=== PATIENT | female | born 1945 | race Caucasian/White ===

== ENCOUNTER → 2024-09-10 15:23 | Outpatient (REF) | payer MEDICARE, SELFPAY ==
--- OUTSIDE RECORDS SUMMARY | 2024-09-10 17:21 | XMS_ITS | Patient Health Record ---
Author Organization [facility]ly [facility], Later [facility] Address [address] [place] [address] Care Team Providers Care Territory Sales Manager Medical Name Role Phone Ashley Caceres Primary Care Provider [phone] Alicia Hutchins Unavailable [phone] Migration, Provider Unavailable Unavailable Allergies Allergen (clinical drug ingredient) Drug/Non Drug Allergy documented on EMR Reaction Allergy Type Onset Date Status Bactrim Unknown Drug Allergy 1 Active hydrochlorothiazide hydroCHLOROthiazide Unknown Drug Al lergy 1 Active spironolactone Spironolactone headache Drug Allergy 11/24 1 Active Substance with penicillin structure and antibacterial mechanism of action (substance) Penicillins Unknown Drug Allergy 1 Active Results Component Value Reference Range Notes CBC w/ Diff Reviewed date:10/24/2023 12:00:00 AM Interpretation: Performing Lab: Notes/Report: Basophil Auto 0.6 % Eos Absolute 0.1 x10*3/mcL Eosinophil Auto 1.1 % Hct 34.5 % Hgb 12.1 g/dL Lymph Absolute 1.1 x10*3/mcL Lymph Auto 22.1 % MCH 32.3 pg MCHC 35.0 g/dL MCV 92.3 fL [place] Absolute 0.4 x10*3/mcL [place] Auto 7.6 % MPV 7.5 fL Neutro Absolute 3.3 x10*3/mcL Neutro Auto 68.6 % Platelets 201 K/mcL RBC 3.73 x10*6/mcL RDW 12.3 % WBC 4.9 K/mcL Comprehensive Metabolic Pane l Reviewed date:10/24/2023 12:00:00 AM Interpretation: Performing Lab: Notes/Report: Albumin Lvl 4.6 g/dL Albumin/Globulin Ratio 1.8 Alk Phos 43 unit/L ALT 18 unit/L ANION GAP 6.6 mmol/L AST 20 unit/L Bilirubin Total 0.4 mg/dL BUN 24 mg/dL Calcium Lvl 9.3 mg/dL Chloride Lvl 105 mmol/L CO2 28 mmol/L Creatinine Lvl 1.04 mg/dL eGFR CKD-EPI 55 mL/min/1.73 m2 Glucose Lvl 104 mg/dL Potassium Lvl 4.0 mmol/L Protein Total 7.2 g/dL Sodium Lvl 140 mmol/L Hemoglobin A1c {Glycosylated } Reviewed date:10/24/2023 12:00:00 AM Interpretation: Performing Lab: Notes/Report: eAvg Glucose 123 mg/dL Hemoglobin A1c 5.9 % Iron Level and TIBC Reviewed date:09/11/2023 12:00:00 AM Interpretation: Performing Lab: Notes/Report: Iron Lvl 58 mcg/dL Iron Sat 19 % TIBC 309 mcg/dL Transferrin 221 mg/dL Lipid Panel {Chol, Trig, HDL , LDL} Reviewed date:10/24/2023 12:00:00 AM Interpretation: Performing Lab: Notes/Report: Chol/HDL 2 Cholesterol Total 160 mg/dL Coronary Risk 43 % HDL 68 mg/dL LDL 56 mg/dL NON HDL CHOLESTEROL 92 mg/dL Triglycerides 180 mg/dL Magnesium Reviewed date:10/24/2023 12:00:00 AM Interpretation: Performing Lab: Notes/Report: Magnesium Lvl 1.9 mg/dL T4 Free Reviewed date:10/24/2023 12:00:00 AM Interpretation: Performing Lab: Notes/Report: T4 Free 0.77 ng/dL Thyroid Stimulating Hormone Reviewed date:10/24/2023 12:00:00 AM Interpretation: Performing Lab: Notes/Report: TSH 1.00 mcIU/mL Vitamin B12 Reviewed date:10/24/2023 12:00:00 AM Interpretation: Performing Lab: Notes/Report: B12 Lvl 667 pg/mL CBC w/ Diff Reviewed date:12/08/2023 12:00:00 AM Interpretation: Performing Lab: Notes/Report: Basophil Auto 1.0 % Eos Absolute 0.1 x10*3/mcL Eosinophil Auto 2.0 % Hct 33.2 % Hgb 11.1 g/dL Lymph Absolute 1.2 x10*3/mcL Lymph Auto 32.1 % MCH 31.6 pg MCHC 33.4 g/dL MCV 94.5 fL [place] Absolute 0.3 x10*3/mcL [place] Auto 9.3 % MPV 7.0 fL Neutro Absolute 2.1 x10*3/mcL Neutro Auto 55.6 % Platelets 173 K/mcL RBC 3.51 x10*6/mcL RDW 12.6 % WBC 3.7 K/mcL Comprehensive Metabolic Pane l Reviewed date:12/08/2023 12:00:00 AM Interpretation: Performing Lab: Notes/Report: Albumin Lvl 4.4 g/dL Albumin/Globulin Ratio 1.7 Alk Phos 39 unit/L ALT 21 unit/L ANION GAP 6.1 mmol/L AST 24 unit/L Bilirubin Total 0.5 mg/dL BUN 29 mg/dL Calcium Lvl 9.8 mg/dL Chloride Lvl 104 mmol/L CO2 30 mmol/L Creatinine Lvl 1.06 mg/dL eGFR CKD-EPI 54 mL/min/1.73 m2 Glucose Lvl 94 mg/dL Potassium Lvl 4.1 mmol/L Protein Total 7.0 g/dL Sodium Lvl 140 mmol/L Ferritin Reviewed date:12/08/2023 12:00:00 AM Interpretation: Performing Lab: Notes/Report: Ferritin Lvl 208.8 ng/mL Hemoglobin A1c {Glycosylated } Reviewed date:12/08/2023 12:00:00 AM Interpretation: Performing Lab: Notes/Report: eAvg Glucose 117 mg/dL Hemoglobin A1c 5.7 % Iron Level and TIBC Reviewed date:12/08/2023 12:00:00 AM Interpretation: Performing Lab: Notes/Report: Iron Lvl 92 mcg/dL Iron Sat 33 % TIBC 283 mcg/dL Transferrin 202 mg/dL Lipid Panel {Chol, Trig, HDL , LDL} Reviewed date:12/08/2023 12:00:00 AM Interpretation: Performing Lab: Notes/Report: Chol/HDL 3 Cholesterol Total 170 mg/dL Coronary Risk 37 % HDL 64 mg/dL LDL 85 mg/dL NON HDL CHOLESTEROL 107 mg/dL Triglycerides 107 mg/dL Magnesium Reviewed date:12/08/2023 12:00:00 AM Interpretation: Performing Lab: Notes/Report: Magnesium Lvl 2.1 mg/dL T4 Free Reviewed date:12/08/2023 12:00:00 AM Interpretation: Performing Lab: Notes/Report: T4 Free 0.86 ng/dL Thyroid Stimulating Hormone Reviewed date:12/08/2023 12:00:00 AM Interpretation: Performing Lab: Notes/Report: TSH 1.61 mcIU/mL Vitamin B12 Reviewed date:12/08/2023 12:00:00 AM Interpretation: Performing Lab: Notes/Report: Vitamin B12 Lvl 457 pg/mL Vitamin D 25 Hydroxy Reviewed date:12/08/2023 12:00:00 AM Interpretation: Performing Lab: Notes/Report: Vitamin D 25 OH 39 ng/mL CBC w/ Diff Reviewed date:01/18/2024 12:00:00 AM Interpretation: Performing Lab: Notes/Report: Basophil Auto 0.5 % Eos Absolute 0.1 x10*3/mcL Eosinophil Auto 0.9 % Hct 34.1 % Hgb 11.7 g/dL Lymph Absolute 1.5 x10*3/mcL Lymph Auto 24.8 % MCH 32.5 pg MCHC 34.4 g/dL MCV 94.4 fL [place] Absolute 0.5 x10*3/mcL [place] Auto 8.2 % MPV 7.7 fL Neutro Absolute 4.0 x10*3/mcL Neutro Auto 65.6 % Platelets 246 K/mcL RBC 3.61 x10*6/mcL RDW 13.5 % WBC 6.0 K/mcL Lactate Dehydrogenase Reviewed date:01/18/2024 12:00:00 AM Interpretation: Performing Lab: Notes/Report: LDH 203 unit/L Microalbumin Quantitative wi th Creatinine Reviewed date:01/18/2024 12:00:00 AM Interpretation: Performing Lab: Notes/Report: Creatinine Ur 186 mg/dL Mcralb/Creat Ratio 32.7 mcg/mg Microalbumin Ur 61.0 mg/L Occult Blood Stool Reviewed date:01/25/2024 12:00:00 AM Interpretation: Performing Lab: Notes/Report: Occult Bld Stl Negative Reason For Referral Reason Squamous cell carcin perri Diagnosis 1 SCC (squamous cell c arcinoma) (C44.92) Referral Organization [facility] Referring Provider First Name Ashley Referring Provider Last Name Crooks Referring Provider [facility] Referred Provider Specialty Dermatology General Notes Stella Knutson 0 08/19/2024 10:56:37 AM NANOFABRICATION SPECIALIST >Dr. Dias[facility] skin clinic is closed and no longer accepting pts, Zenia Stella 08/19/2024 11:00:56 AM NANOFABRICATION SPECIALIST >Dr. Kathleen looks to specialize more in ENT related plastic surgery procedures such as rhinoplasty, Stella Knutson 08/19/2024 11:04:34 AM NANOFABRICATION SPECIALIST >Referral sent to Dr. Ramos at [facility] in [place] [phone], [place] 08/19/2024 11:35:45 AM NANOFABRICATION SPECIALIST >I gave pt the name and phone number of the derm we referred her to at today's OV appt Clinical Notes Osmani Audrey 08/16 01:05:37 PM NANOFABRICATION SPECIALIST >Dr braden or Dr. Kathleen Referral Priority Routine Medications Medication SIG (Take, Route, Frequency, Duration) Notes Start Date End Date Status Anti-Diarrheal oral; Duration: 0 *Pick strength -form from [employer] Apparelan for eRX* 12/04/2020 Active Benadryl Allergy 25 MG 1/2 Oral every night at bedtime; Duration: 0 12/04/2020 Active Glucosamine-Chondr (MSM-hyal) oral; Duration: 0 *Reorder from [employer] Apparelan for eRx and Interaction Alerts* 12/04/2020 Active Multivitamin oral; Duration: 0 *Pick strength -form from [employer] for eRX* 12/04/2020 Active amLODIPine Besylate 5 MG 1 tablet Orally twice a day; Duration: 90 days INcreased directions. Active Calcium 600 oral; Duration: 0 *Pick strength -form from [employer] for eRX* 12/04/2020 Active Tumersaid oral; Duration: 0 *Pick strength -form from [employer] for eRX* 12/15/2023 Active Metoprolol Succinate ER 50 MG 1 tablet Orally Once a day; Duration: 90 days Active Vitamin D3 125 MCG (5000 UT) 1 Oral every day; Duration: 0 12/04/2020 Active Atorvastatin Calcium 20 MG 1 tablet Orally Once a day; Duration: 90 days Active Lisinopril 40 MG 1 tablet Orally Once a day; Duration: 90 days Active Tylenol 8 Hour Arthritis Pain 650 MG 2 tablets Oral 3 times a day; Duration: 0 days As needed 12/04/2020 Active Co Q-10 200 mg 1 Oral every day; Duration: 0 12/04/2020 Active Myrbetriq 25 MG 1 tablet alternating with 50 mg as needed Orally Once a day; Duration: 90 days Active Aspirin Adult Low Strength 81 MG 1 Oral every day; Duration: 0 12/04/2020 Active Immunizations Vaccine Route Administration Date Status Comme nts Zoster Unknown 08/20/2019 Administered Source VFC Code: : Tdap Unknown 12/12/2019 Administered ,sourcename : Historical information -from public agency Source VFC Code: : Td (adult), adsorbed Unknown 05/30/2005 Administered ,sourcename : Historical information -from public agency Source VFC Code: : RSV-MAb (Respiratory syncytial virus immune globulin) Unknown 05/02/2023 Administered ,sourcename : Pharmacy Source VFC Code: : Pneumococcal polysaccharide PPV23 Unknown 04/07/2006 Administered ,sourcename : Historical information -from public agency Source VFC Code: : Pneumococcal polysaccharide PPV23 Unknown 05/26/2014 Administered ,sourcename : Historical information -from public agency Source VFC Code: : Pneumococcal conjugate PCV 13 Unknown 10/12/2017 Administered ,sourcename : Historical information -from public agency Source VFC Code: : Pfizer-Biontech Covid-19 Vaccine 1st dose Unknown 08/01/2020 Administered ,sourcename : Historical information -from public agency Source VFC Code: : Pfizer-Biontech Covid-19 Vaccine 1st dose Unknown 08/29/2020 Administered ,sourcename : Historical information -from public agency Source VFC Code: : Pfizer-Biontech Covid-19 Vaccine 1st dose Unknown 05/04/2021 Administered ,sourcename : Historical information -from public agency Source VFC Code: : Pfizer-Biontech Covid-19 Vaccine 1st dose Unknown 10/28/2021 Administered ,sourcename : Historical information -from public agency Source VFC Code: : Pfizer-Biontech Covid-19 Vaccine 1st dose Unknown 05/02/2023 Administered ,sourcename : Pharmacy Source VFC Code: : Moderna Covid-19 Vaccine 1st dose IM Intramuscular 04/27/2022 Administered Source VFC Code: : Influenza, seasonal, injectable, preservative free, 3 yrs and above Unknown 04/23/2021 Administered ,sourcename : Historical information -from public agency Source VFC Code: : Influenza, high dose seasonal Unknown 04/13/2023 Administered ,sourcename : Pharmacy Source VFC Code: : Hep B, adult (2 dose schedule) Unknown 03/24/1993 Administered ,sourcename : Historical information -from public agency Source VFC Code: : Hep B, adult (2 dose schedule) Unknown 04/21/1993 Administered ,sourcename : Historical information -from public agency Source VFC Code: : Hep B, adult (2 dose schedule) Unknown 09/29/1993 Administered ,sourcename : Historical information -from public agency Source VFC Code: : Problems Problem Type SNOMED Code ICD Code Onset Dates Problem Status W/U Status Risk Notes Problem Dermatophytosis of nail (987874991) Dermatophytosis of nail (110.1) Problem resolved confirmed Problem Dermatophytosis (53828771) Dermatophytosis of unspecified site (110.9) Problem resolved confirmed Problem Vitamin D deficiency (58268599) Unspecified vitamin D deficiency (268.9) Problem resolved confirmed Problem Benign essential hypertension (6713598) Essential hypertension, benign (401.1) Problem resolved confirmed Problem Atrophy of skeletal muscle of pelvis (705203297) Pelvic muscle wasting (618.83) Problem resolved confirmed Problem Rectal prolapse (80648999) Rectal prolapse (569.1) Problem resolved confirmed Problem Urinary tract infectious disease (disorder) (33502247) Urinary tract infection, site not specified (599.0) Problem resolved confirmed Problem 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) Problem resolved confirmed Problem Tinea unguium (658146609) Tinea unguium (B35.1) Problem resolved confirmed Problem Tinea corporis (76067470) Tinea corporis (B35.4) Problem resolved confirmed Problem Squamous cell carcinoma of upper extremity (852132591) Squamous cell carcinoma of skin of right upper limb, 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) 023 Active confirmed Problem Anemia (552864181) Anemia, unspecified (D64.9) Active confirmed Problem Leukopenia (04569150) Decreased white blood cell count, unspecified (D72.819) Active confirmed Problem Vitamin B deficiency (27526884) Deficiency of other specified B group vitamins (E53.8) Active confirmed Problem Vitamin D deficiency (47366378) Vitamin D deficiency, unspecified (E55.9) Active confirmed Problem Mixed hyperlipidemia (352025895) Mixed hyperlipidemia (E78.2) Active confirmed Problem Hyperlipidemia (63170890) Hyperlipidemia, unspecified (E78.5) Active confirmed Problem Hypomagnesemia (418905874) Hypomagnesemia (E83.42) Active confirmed Problem Essential hypertension (08234785) Essential (primary) hypertension (I10) Active confirmed Problem Diverticula of intestine (28067280) Diverticulosis of intestine, part unspecified, without perforation or abscess without bleeding (K57.90) Active confirmed Problem Rectal prolapse (61760820) Rectal prolapse (K62.3) Active confirmed Problem Hemorrhoids (84743190) Other hemorrhoids (K64.8) Active confirmed Problem Pain of left hip joint (finding) (548123313538165) Pain in left hip (M25.552) Active confirmed Problem Scoliosis (060830499) Scoliosis, unspecified (M41.9) Active confirmed Problem Sciatica (08296307) Sciatica, unspecified side (M54.30) Active confirmed Problem Disorder of bone (58630330) Other specified disorders of bone density and structure, unspecified site (M85.80) Active confirmed Problem Overactive bladder (008794427) Overactive bladder (N32.81) Active confirmed Problem Urinary tract infectious disease (disorder) (20104043) Urinary tract infection, site not specified (N39.0) Problem resolved confirmed Problem Atrophy of skeletal muscle of pelvis (560732856) Pelvic muscle wasting (N81.84) 018 Problem resolved confirmed Problem Spontaneous ecchymosis (452961644) Spontaneous ecchymoses (R23.3) 023 Active confirmed Problem Age-related cognitive decline (107979020) Age-related cognitive decline (R41.81) 018 Problem resolved confirmed Problem Problem, abnormal examination (67207845) Encounter for general adult medical examination with abnormal findings (Z00.01) 018 Problem resolved confirmed Problem Postmenopausal state (37274493) Asymptomatic menopausal state (Z78.0) 023 Active confirmed Problem Urogenital implant (222592426) Presence of urogenital implants (Z96.0) 023 Problem resolved confirmed Problem Spinal stenosis of lumbar region (83407970) Spinal stenosis, lumbar region without neurogenic claudication (M48.061) 024 Active confirmed Problem Prediabetes (964812317) Prediabetes (R73.03) 024 Active confirmed Problem Chronic kidney disease stage 3A (disorder) (677115790) Chronic kidney disease, stage 3a (N18.31) 024 Active confirmed Problem 852510006 SCC (squamous ce ll carcinoma) (C44.92) Active confirmed Vital Signs Heart Rate 80 /min 08/19/2024 Temperature 97.4 degrees Fahrenheit 08/19/2024 Respiratory Rate 20 /min 08/19/2024 Height-cm 156.21 cm 08/19/2024 Oximetry 99 % 08/19/2024 Blood pressure diastolic 72 mm Hg 08/19/2024 Weight-kg 60.87 kg 08/19/2024 Height 61.50 in 08/19/2024 Blood pressure systolic 146 mm Hg 08/19/2024 Weight 134.2 lbs 08/19/2024 BMI 24.94 kg/m2 08/19/2024 Encounters Encounter Location Date Provider Diagnosis [address] [address] 09/11/2023 Alicia Hutchins Encounter for genera l adult medical examination without abnormal findings Z00.00 ; Vitamin D deficiency, unspecified E55.9 ; Essential (primary) hypertension I10 ; Pain in left hip M25.552 ; Other specified disorders of bone density and structure, unspecified site M85.80 ; Sciatica, unspecified side M54.30 ; Encounter for other screening for malignant neoplasm of breast Z12.39 ; Overactive bladder N32.81 ; Mixed hyperlipidemia E78.2 ; Hyperglycemia, unspecified R73.9 ; Unsteadiness on feet R26.81 and Anemia, unspecified D64.9 [place] [address] 09/19/2023 Provider Migration Spondylosis without myelopathy or radiculopathy, lumbar region M47.816 ; Sciatica, unspecified side M54.30 ; Scoliosis, unspecified M41.9 and Low back pain, unspecified M54.50 [place] [address] 10/19/2023 [facility] Spondylosis without myelopathy or radiculopathy, lumbar region M47.816 ; Hypomagnesemia E83.42 ; Unsteadiness on feet R26.81 ; Low back pain, unspecified M54.50 and Sciatica, unspecified side M54.30 [place] [phone] 12/07/2023 Provider Migration Anemia, unspecified D64.9 ; Hyperlipidemia, unspecified E78.5 ; Hyperglycemia, unspecified R73.9 ; Hypomagnesemia E83.42 ; Essential (primary) hypertension I10 and Vitamin D deficiency, unspecified E55.9 [place] [phone] 12/15/2023 [facility] Vitamin D deficiency , unspecified E55.9 ; Mixed hyperlipidemia E78.2 ; Overactive bladder N32.81 ; Decreased white blood cell count, unspecified D72.819 ; Chronic kidney disease, stage 3a N18.31 ; Spinal stenosis, lumbar region without neurogenic claudication M48.061 ; Other seborrheic keratosis L82.1 ; Neoplasm of uncertain behavior of skin D48.5 ; Unsteadiness on feet R26.81 ; Essential (primary) hypertension I10 ; Prediabetes R73.03 ; Deficiency of other specified B group vitamins E53.8 and Anemia, unspecified D64.[address] [address] 07/03/2024 [facility] Neoplasm of uncertai n behavior of skin D48.5 ; Anemia, unspecified D64.9 ; Decreased white blood cell count, unspecified D72.819 ; Vitamin D deficiency, unspecified E55.9 ; Hyperlipidemia, unspecified E78.5 ; Essential (primary) hypertension I10 ; Sebaceous cyst L72.3 ; Other seborrheic keratosis L82.1 and Actinic keratosis L57.[address] [address] 07/19/2024 [facility] Inflamed seborrheic keratosis L82.0 and Sebaceous cyst L72.[address] [address] 08/02/2024 [facility] Sebaceous cyst L72.3 and Neoplasm of uncertain behavior of skin D48.[address] [address] 08/12/2024 [facility] Visit for suture removal Z48.[address] [address] 08/19/2024 Alicia Hutchins Routine gynecologica l examination Z01.419 ; Screening breast examination Z12.39 and Pessary maintenance Z46.[address] [address] 05/25/2024 Provider Migration [address] [phone] 05/26/2024 Provider Migration [address] [address] 06/27/2024 [facility] Vitamin D deficiency , unspecified E55.9 ; Deficiency of other specified B group vitamins E53.8 ; Mixed hyperlipidemia E78.2 ; Hypomagnesemia E83.42 ; Essential (primary) hypertension I10 and Hyperglycemia, unspecified R73.[address] [address] 07/09/[address] [address] 07/25/2024 Alicia Hutchins Assessments Encounter Date Diagnosis (ICD Code) Assessment Notes Treat ment Notes Treatment Clinical Notes 06/27/2024 Vitamin D deficiency, unspecified (ICD-10 - E55.9) 07/03/2024 Neoplasm of uncertain behavior of skin (ICD-10 - D48.5) 07/03/2024 Anemia, unspecified (ICD-10 - D64.9) 07/19/2024 Sebaceous cyst (ICD-10 - L72.3) 07/19/2024 Inflamed seborrheic keratosis (ICD-10 - L82.0) Post procedure without path Patient was informed of the following: Apply Vaseline or Aquaphor until the wound is healed or until sutures are removed in approximately 10 days. Wash area gently with soap and water. Monitor for signs and symptoms of infection and call the office with any questions or concerns. 08/02/2024 Neoplasm of uncertain behavior of skin (ICD-10 - D48.5) Post procedure with path Patient was informed of the following: Apply Vaseline or Aquaphor until the wound is healed or until sutures are removed in approximately 10 days. Wash area gently with soap and water. Monitor for signs and symptoms of infection and call the office with any questions or concerns. Patient will be contacted with pathology results when available. 08/02/2024 Sebaceous cyst (ICD-10 - L72.3) Post procedure without path Patient was informed of the following: Apply Vaseline or Aquaphor until the wound is healed or until sutures are removed in approximately 10 days. Wash area gently with soap and water. Monitor for signs and symptoms of infection and call the office with any questions or concerns. 08/12/2024 Visit for suture removal (ICD-10 - Z48.02) 2 sutures removed from left upper arm apply vasoline to any healing areas will call with path report on right lower leg when available. 08/19/2024 Screening breast examination (ICD-10 - Z12.39) -Declines any further mammograms. CBE exam done today and normal 08/19/2024 Routine gynecological examination (ICD-10 - Z01.419) -Has aged out pap, but pelvic exam was performed along with pessary care. Mild cervical erosion noted, most likely from pessary. She has mild uterine prolapse. 09/11/2023 Anemia, unspecified (ICD-10 - D64.9) 09/11/2023 Vitamin D deficiency, unspecified (ICD-10 - E55.9) 09/11/2023 Mixed hyperlipidemia (ICD-10 - E78.2) 09/11/2023 Essential (primary) hypertension (ICD-10 - I10) 09/11/2023 Pain in left hip (ICD-10 - M25.552) 09/11/2023 Sciatica, unspecified side (ICD-10 - M54.30) 09/11/2023 Other specified disorders of bone density and structure, unspecified site (ICD-10 - M85.80) 09/11/2023 Overactive bladder (ICD-10 - N32.81) 09/11/2023 Unsteadiness on feet (ICD-10 - R26.81) 09/11/2023 Hyperglycemia, unspecified (ICD-10 - R73.9) 09/11/2023 Encounter for general adult medical examination without abnormal findings (ICD-10 - Z00.00) 09/11/2023 Encounter for other screening for malignant neoplasm of breast (ICD-10 - Z12.39) 09/19/2023 Scoliosis, unspecified (ICD-10 - M41.9) 09/19/2023 Spondylosis without myelopathy or radiculopathy, lumbar region (ICD-10 - M47.816) 09/19/2023 Sciatica, unspecified side (ICD-10 - M54.30) 09/19/2023 Low back pain, unspecified (ICD-10 - M54.50) 10/19/2023 Hypomagnesemia (ICD-10 - E83.42) 10/19/2023 Spondylosis without myelopathy or radiculopathy, lumbar region (ICD-10 - M47.816) 10/19/2023 Sciatica, unspecified side (ICD-10 - M54.30) 10/19/2023 Unsteadiness on feet (ICD-10 - R26.81) 10/19/2023 Low back pain, unspecified (ICD-10 - M54.50) 12/07/2023 Anemia, unspecified (ICD-10 - D64.9) 12/07/2023 Vitamin D deficiency, unspecified (ICD-10 - E55.9) 12/07/2023 Hyperlipidemia, unspecified (ICD-10 - E78.5) 12/07/2023 Hypomagnesemia (ICD-10 - E83.42) 12/07/2023 Essential (primary) hypertension (ICD-10 - I10) 12/07/2023 Hyperglycemia, unspecified (ICD-10 - R73.9) 12/15/2023 Neoplasm of uncertain behavior of skin (ICD-10 - D48.5) 12/15/2023 Anemia, unspecified (ICD-10 - D64.9) 12/15/2023 Decreased white blood cell count, unspecified (ICD-10 - D72.819) 12/15/2023 Deficiency of other specified B group vitamins (ICD-10 - E53.8) 12/15/2023 Vitamin D deficiency, unspecified (ICD-10 - E55.9) 12/15/2023 Mixed hyperlipidemia (ICD-10 - E78.2) 12/15/2023 Essential (primary) hypertension (ICD-10 - I10) 12/15/2023 Other seborrheic keratosis (ICD-10 - L82.1) 12/15/2023 Overactive bladder (ICD-10 - N32.81) 12/15/2023 Unsteadiness on feet (ICD-10 - R26.81) 12/15/2023 Spinal stenosis, lumbar region without neurogenic claudication (ICD-10 - M48.061) 12/15/2023 Prediabetes (ICD-10 - R73.03) 12/15/2023 Chronic kidney disease, stage 3a (ICD-10 - N18.31) 06/27/2024 Deficiency of other specified B group vitamins (ICD-10 - E53.8) 08/19/2024 Pessary maintenance (ICD-10 - Z46.89) -Due to arthritis in hand she has difficulty removing pessary, but still feels like she can manage at home still. Small fissure noted at the inferior vaginal opening. Cleaned and reinstreted withou any difficulties. 07/03/2024 Decreased white blood cell count, unspecified (ICD-10 - D72.819) 06/27/2024 Mixed hyperlipidemia (ICD-10 - E78.2) 06/27/2024 Hypomagnesemia (ICD-10 - E83.42) 07/03/2024 Vitamin D deficiency, unspecified (ICD-10 - E55.9) 07/03/2024 Hyperlipidemia, unspecified (ICD-10 - E78.5) 06/27/2024 Essential (primary) hypertension (ICD-10 - I10) 06/27/2024 Hyperglycemia, unspecified (ICD-10 - R73.9) 07/03/2024 Essential (primary) hypertension (ICD-10 - I10) 07/03/2024 Sebaceous cyst (ICD-10 - L72.3) 07/03/2024 Other seborrheic keratosis (ICD-10 - L82.1) 07/03/2024 Actinic keratosis (ICD-10 - L57.0) 07/03/2024 Other Assessment & Plan Actinic Keratosis (Left Inner Arm): - Identified as a precancerous lesion. - Needs to be frozen at some point. Seborrheic Keratosis (Right Neck): - Not a skin cancer, identified as seborrheic keratosis. - Can be shaved off and cauterized if it bothers the patient. Sebaceous Cyst (Various Locations): left arm, back - Identified as sebaceous cysts, not cancerous and will not become cancerous. - Can be opened and removed if bothersome. Squamous Cell Skin Cancer History: - History of squamous cell skin cancer; current red spot on the skin could be transformed. - Biopsy recommended for the atypical red spot right lower leg HTN - Current medication is amlodipine 5 mg once daily. - Increase amlodipine to 5 mg twice daily. Prescribe a 90-day supply. - Risks and side effects: Increased chance of leg swelling or side effects if taken together. Memory Concerns: - Concerns about memory worsening. - Schedule a full memory test during the August visit. -Discussed OTC supplements such as prevagen. Mammogram and Colonoscopy: - No active GI bleeding; mammograms are optional after age 75. - No routine mammograms unless symptoms arise. No colonoscopy unless active GI bleeding. Prostate Cancer Management (Spouse): - Spouse has prostate cancer; PSA levels not zero. - Spouse to consult with urologist for further management. Skin Lesion Biopsy and Removal: - Multiple skin lesions identified. - Schedule appointments for right leg biopsy, left arm cryotherapy, and right neck shave biopsy. Prescription - amlodipine 5 mg, twice a day, 90-day supply. Increased chance of leg swelling or side effects if taken together. Appointments - Biopsy appointment on right leg and cryotherapy on left arm, same day. - Separate appointment for shave biopsy on right neck. - August appointment for full memory test. 08/19/2024 Other Squamous cell carcinoma (pending plastic surgery consult)- Squamous cell carcinoma diagnosis confirmed. Pending plastic surgery consult for further management. She was given number of plastic surgeon to call Plan Of Treatment Pending Test Test Name Order Date Thyroxine (T4) 06/27/2024 Hemoglobin A1c 06/27/2024 Vitamin B12 06/27/2024 TSH 06/27/2024 CBC With Differential/Platelet Vitamin D, 25-Hydroxy 06/27/2024 Comp. Metabolic Panel (14) 06/27/2024 Next Appt Details Provider Name:Davidson lipscomb, 09/17/2024 02:00:00 PM, [employer], [place], [address], [phone] Provider Name:Ashley Caceres , 01/01/2025 01:45:00 PM, [employer], [place], [address], [phone] Insurance Providers Payer Name Payer Address Payer Phone Subscriber Number Group Number Insured Name Patient Relationship to Insured Coverage Start Date Coverage End Date [employer] Medicare Advantage [address]po [address] [place] [address] [id number] Felipa Wong Self - patient is the insured 3 Medical (General) History Medical History History ICD Code Spinal stenosis, lumbar region without n eurogenic claudication M48.061 Prediabetes R73.03 Chronic kidney disease, stage 3a N18.31 Anemia, unspecified D64.9 Mixed hyperlipidemia E78.2 Scoliosis, unspecified M41.9 Vitamin D deficiency, unspecified E55.9 Asymptomatic menopausal state Z78.0 Essential (primary) hypertension I10 Surgical History Surgery Date(Month/Year) Colonoscopy _ Arthroplasty, knee, condyle and plateau; medial AND lateral compartments with or without patella res _ laryngoscopy ,notes : negative 8 Cystoscopy ,notes : microhematuria 04/14 10
--- OUTSIDE RECORDS SUMMARY | 2024-09-10 17:21 | XMS_ITS | Clinical Summary ---
Author Organization [facility] Address [facility] [place] [address] Care Team Providers Care Electric Welder Helper Name Role Phone Joellen Del Castillo MD, Otis Unavailable [phone] [facility] [phone] Dior Molina MD Primary Care Provider Allergies Active Allergy Reactions Criticality Noted Date Comments Latex Rash Low 07/22/2022 Penicillins Rash Low 06/14/2017 Spironolactone Headache 07/13/2017 Medications atorvastatin 10 MG tablet 2 tablets (20 mg total) nightly at bedtime. 06/13/2017 Active aspirin EC (ECOTRIN) 81 MG tablet Take 1 tablet (81 mg total) by mouth daily. Active multivitamin tablet Take 1 tablet by mouth daily. Active Calcium Carbonate (CALCIUM 600 OR) Take by mouth daily. Active Cholecalciferol (VITAMIN D3) 2000 UNITS Tab Take by mouth daily. Active magnesium oxide 250 MG tablet Take 1 tablet (250 mg total) by mouth daily. Active COENZYME Q-10 OR Take by mouth daily. Active amLODIPine (NORVASC) 5 MG tablet Take 1 tablet (5 mg total) by mouth daily. 06/17/2022 Active lisinopril (PRINIVIL) 40 MG tablet Take 1 tablet (40 mg total) by mouth daily. 06/06/2022 Active MYRBETRIQ 50 MG 24 hr tablet Take 1 tablet (50 mg total) by mouth daily. 06/06/2022 Active metoprolol succinate ER (TOPROL-XL) 50 MG 24 hr tablet Take 1 tablet (50 mg total) by mouth daily. 06/17/2022 Active Active Problems Problem Noted Date Diagnosed Date Encounter for screening for malignant neoplasm o f colon 07/28/2022 Overview (08/01/2022): Added automatically from request for surgery [id number] HTN (hypertension) Dyslipidemia Pulmonary HTN (CMS/HCC HHS/HCC) Resolved Problems Problem Noted Date Diagnosed Date Resolved Date Encounter for screening colonoscopy 07/27/2022 08/01/2022 Family History Medical History Relation Comments Stroke Mother Stroke Paternal Grandfather Breast Cancer Neg Hx Relation Status Comments Father Mother Paternal Grandfather Social History Tobacco Use Types Packs/Day Years Used Date Smoking Tobacco: Never Smokeless Tobacco: Never Tobacco Cessation:Counseling Given: Not Answered Alcohol Use Standard Drinks/Week Comments No 0 (1 standard drink = 0.6 oz pur e alcohol) PHQ-2 Answer Date Recorded Patient Health Questionnaire-2 Score 0 07/22/2022 Comments No Sex and Gender Information Value Date Recorded Sex Assigned at Not on file Legal Sex Female 2:19 PM CDT Gender Identity Not on file Sexual Orientation Not on file Occupation Industry Job Start Date Job End Date Retired Not on file Not on file Not on file Last Filed Vital Signs Vital Sign Reading Time Taken Comments Blood Pressure 171/47 04/26/2023 9:17 AM CDT Pulse 72 04/26/2023 9:17 AM CDT Temperature 36.1 C (97 F) 04/26/2023 7:49 AM CDT Respiratory Rate 16 04/26/2023 9:17 AM CDT Oxygen Saturation 100% 04/26/2023 9:17 AM CDT Inhaled Oxygen Concentration - - Weight 63.5 kg (140 lb) 04/20/2023 11:32 AM CDT Height 160 cm (5' 3 ) 04/20/2023 11:32 AM CDT Body Mass Index 24.8 04/20/2023 11:32 AM CDT Plan of Treatment Health Maintenance Due Date Last Done Comments Hepatitis C 1963 DTaP, Tdap and Td Vaccines (1 - Tdap) 05/31/2005 05/30/2005 Zoster Vaccines (2 of 3) 04/02/2007 02/05/2007 Annual Medicare Wellness Visit 2010 Pneumococcal Vaccine: 65+ Years (2 of 2 - PCV) 05/26/2015 05/26/2014, 04/07/2006 RSV Immunization or 60+ Years (1 - 1-dose 75+ series) 2020 COVID-19 Vaccine ( season) 2024 Influenza Adult (#1) 2024 03/20/2018, 03/16/2017, 04/28/2016, Additional history exists Colorectal Cancer Screening Colonoscopy (10 Years) Discontinued 08/05/2022, 08/05/2022, 07/24/2017 Dexa Scan (General) Completed 09/09/2022 Meningococcal B Vaccine Aged Out No l onger eligible based on patient's age to complete this topic Meningococcal Vaccine Aged Out No driss pedrito eligible based on patient's age to complete this topic RSV Immunizations Under 20 Months Aged Out No longer eligible based on patient's age to complete this topic Medical Devices Implanted Type Area Tree Thinner Device Identifier Shelf Expiration Date Model / Serial / Lot Maximo Lens Implanted:Qty: 1 on 03/29/2023 by Daylin Kay MD at [facility] [id number] 09/14/2025 / / NONE Clareon Ponce Optix Implanted:Qty: 1 on 04/26/2023 by Daylin Kay MD at [facility] [id number] 10/05/2025 / [id number] / Procedures Procedure Name Priority Date/Time Associated Diagnosis Comments BONE DENSITY/DEXA Routine 09/09/2022 9:1 3 AM CDT Encounter for general adult medical examination without abnormal findings Vaginal pessary present Unsteady gait Vitamin D deficiency Postmenopausal Screening for breast cancer Hypertension Rectal prolapse Mixed hyperlipidemia Overactive bladder COLONOSCOPY Routine 08/05/2022 9:14 AM PARTITION ASSEMBLER from Last 3 Months or Most Recently Relevant to Health Maintenance Results * BONE DENSITY/DEXA (09/09/2022 9:13 AM CDT) Anatomical Region Laterality Modality Bone Other, Computed Tomography 09/09/2022 1:08 PM CDT Narrative 09/09/2022 1:13 PM CDT IMAGING STUDIES: BONE DENSITY/DEXA DATE: 09/09/2022 8:49 AM CLINICAL HISTORY: Postmenopausal. On calcium replacement therapy. 77-year-old female. Vitamin D deficiency. Loss of 3.5 inches of height. Menopause between age 46 and 50. FINDINGS: LUMBAR SPINE L1-L2 BMD: 0.971 g/sq cm T-SCORE: -1.6 WHO CLASSIFICATION: Moderate osteopenia FRACTURE RISK: Low LEFT FEMORAL NECK: BMD: 0.796 T-SCORE: -1.7 WHO CLASSIFICATION: Moderate osteopenia FRACTURE RISK: Very low COMPARISON STUDY: 07/08/2020. LUMBAR SPINE L1-L2 BMD: 1.567 T-SCORE: 3.4 WHO CLASSIFICATION: Normal young adult range FRACTURE RISK: Negligible LEFT FEMORAL NECK: BMD: 0.840 T-SCORE: -1.4 WHO CLASSIFICATION: Mild osteopenia FRACTURE RISK: Very low Recommendation. Continuation of calcium replacement therapy with repeat imaging in 2 years. Ordered By: DIOR MOLINA Interpreted By: Katelyn Doyle, 09/09/2022 1:08 PM Procedure Note Jamari Doyle MD - 09/09/2022 IMAGING STUDIES: BONE DENSITY/DEXA DATE: 09/09/2022 8:49 AM CLINICAL HISTORY: Postmenopausal. On calcium replacement therapy.77-year-old female. Vitamin D deficiency. Loss of 3.5 inches ofheight. Menopause between age 46 and 50. FINDINGS: LUMBAR SPINE L1-L2 BMD: 0.971 g/sq cm T-SCORE: -1.6 WHO CLASSIFICATION: Moderate osteopenia FRACTURE RISK: Low LEFT FEMORAL NECK: BMD: 0.796 T-SCORE: -1.7 WHO CLASSIFICATION: Moderate osteopenia FRACTURE RISK: Very low COMPARISON STUDY: 07/08/2020. LUMBAR SPINE L1-L2 BMD: 1.567 T-SCORE: 3.4 WHO CLASSIFICATION: Normal young adult range FRACTURE RISK: Negligible LEFT FEMORAL NECK: BMD: 0.840 T-SCORE: -1.4 WHO CLASSIFICATION: Mild osteopenia FRACTURE RISK: Very low Recommendation. Continuation of calcium replacement therapy with repeatimaging in 2 years. Ordered By: DIOR MOLINA Interpreted By: Katelyn Doyle, 09/09/2022 1:08 PM us Dior Molina MD DEXA Final Result * COLONOSCOPY (07/24/2017) us Documents Scanned SCANNING Final Result from Last 3 Months or Most Recently Relevant to Health Maintenance Insurance [address] [place] [id number] AET[place] [address] [place] [id number] Advance Directives Documents on File Type Date Recorded Patient Online Merchandising Specialist Expl anation Advance Directives and Living Will 03/26/2021 12:00 AM [facility]OA Advance Directives and Living Will 03/26/2021 12:00 AM [facility]CPOA Advance Directives and Living Will 07/08/2020 12:00 AM [facility]CPOA Advance Directives and Living Will 07/08/2020 12:00 AM [facility]CPOA Advance Directives and Living Will 04/22/2020 12:00 AM [facility]CPOA Advance Directives and Living Will 04/22/2020 12:00 AM [facility]CPOA Advance Directives and Living Will 04/22/2020 12:00 AM [facility]CPOA Advance Directives and Living Will 04/22/2020 12:00 AM [facility]CPOA Advance Directives and Living Will 01/21/2020 12:00 AM [facility]CPOA Advance Directives and Living Will 01/21/2020 12:00 AM [facility]CPOA Advance Directives and Living Will 01/08/2020 12:00 AM [facility]CPOA Advance Directives and Living Will 01/08/2020 12:00 AM [facility]CPOA Advance Directives and Living Will 03/27/2019 12:00 AM [facility]CPOA Advance Directives and Living Will 03/27/2019 12:00 AM [facility]CPOA Advance Directives and Living Will 07/03/2018 12:00 AM [facility]CPOA Advance Directives and Living Will 07/03/2018 12:00 AM [facility]CPOA Advance Directives and Living Will 04/23/2018 12:00 AM [facility]CPOA Advance Directives and Living Will 04/23/2018 12:00 AM [facility]CPOA Advance Directives and Living Will 03/23/2018 12:00 AM [facility]CPOA Advance Directives and Living Will 03/23/2018 12:00 AM [facility]CPOA Advance Directives and Living Will 01/23/2018 12:00 AM [facility]CPOA Advance Directives and Living Will 01/23/2018 12:00 AM [facility]CPOA Advance Directives and Living Will 11/14/2017 12:00 AM [facility]CPOA Advance Directives and Living Will 11/14/2017 12:00 AM [facility]CPOA Advance Directives and Living Will 09/08/2017 12:00 AM [facility]CPOA Advance Directives and Living Will 09/08/2017 12:00 AM [facility]CPOA Advance Directives and Living Will 07/24/2017 12:00 AM ADVANCED DIRECTIVES Advance Directives and Living Will 07/24/2017 12:00 AM [facility]CPOA Advance Directives and Living Will 07/24/2017 12:00 AM [facility]CPOA Advance Directives and Living Will 07/14/2017 12:00 AM [facility]CPOA Advance Directives and Living Will 07/14/2017 12:00 AM [facility]CPOA Advance Directives and Living Will 07/14/2017 12:00 AM [facility]CPOA Advance Directives and Living Will 07/14/2017 12:00 AM [facility]CPOA Advance Directives and Living Will 07/06/2017 12:00 AM [facility]CPOA Advance Directives and Living Will 07/06/2017 12:00 AM [facility]CPOA Advance Directives and Living Will 06/27/2017 12:48 PM [facility] Herb Schneider - 07/17/2012 Advance Directives and Living Will 06/22/2017 12:00 AM [facility]CPOA Advance Directives and Living Will 06/22/2017 12:00 AM [facility]CPOA Advance Directives and Living Will 05/23/2017 12:00 AM [facility]CPOA Advance Directives and Living Will 05/23/2017 12:00 AM [facility]CPOA Advance Directives and Living Will 05/16/2017 12:00 AM [facility]CPOA Advance Directives and Living Will 05/16/2017 12:00 AM [facility]CPOA Advance Directives and Living Will 05/04/2017 12:00 AM [facility]CPOA Advance Directives and Living Will 05/04/2017 12:00 AM [facility]CPOA Advance Directives and Living Will 03/17/2017 12:00 AM [facility]CPOA Advance Directives and Living Will 03/17/2017 12:00 AM [facility]CPOA Advance Directives and Living Will 01/17/2017 12:00 AM [facility]CPOA Advance Directives and Living Will 01/17/2017 12:00 AM [facility]CPOA Advance Directives and Living Will 01/17/2017 12:00 AM [facility]CPOA Advance Directives and Living Will 01/17/2017 12:00 AM [facility]CPOA Advance Directives and Living Will 09/07/2016 12:00 AM [facility]CPOA Advance Directives and Living Will 09/07/2016 12:00 AM [facility]CPOA Advance Directives and Living Will 04/07/2016 12:00 AM [facility]CPOA Advance Directives and Living Will 04/07/2016 12:00 AM [facility]CPOA Advance Directives and Living Will 03/18/2016 12:00 AM [facility]CPOA Advance Directives and Living Will 03/18/2016 12:00 AM HCPOA Advance Directives and Living Will 01/26/2016 12:00 AM [facility]CPOA Advance Directives and Living Will 01/26/2016 12:00 AM [facility]CPOA Advance Directives and Living Will 12/18/2015 12:00 AM HCPOA Advance Directives and Living Will 12/18/2015 12:00 AM HCPOA Advance Directives and Living Will 10/29/2015 12:00 AM HCPOA Advance Directives and Living Will 10/29/2015 12:00 AM HCPOA Advance Directives and Living Will 09/29/2015 12:00 AM HCPOA Advance Directives and Living Will 09/29/2015 12:00 AM [facility]CPOA Advance Directives and Living Will 07/28/2015 12:00 AM HCPOA Advance Directives and Living Will 07/28/2015 12:00 AM HCPOA Advance Directives and Living Will 06/15/2015 12:00 AM HCPOA Advance Directives and Living Will 06/15/2015 12:00 AM HCPOA Advance Directives and Living Will 03/16/2015 12:00 AM HCPOA Advance Directives and Living Will 03/16/2015 12:00 AM HCPOA Advance Directives and Living Will 01/01/2015 12:00 AM HCPOA Advance Directives and Living Will 01/01/2015 12:00 AM HCPOA Advance Directives and Living Will 12/19/2014 12:00 AM HCPOA Advance Directives and Living Will 12/19/2014 12:00 AM HCPOA Advance Directives and Living Will 12/08/2014 12:00 AM HCPOA Advance Directives and Living Will 06/04/2014 12:00 AM ADVANCED DIRECTIVES Advance Directives and Living Will 06/04/2014 12:00 AM HCPOA Advance Directives and Living Will 05/26/2014 12:00 AM ADVANCED DIRECTIVES Advance Directives and Living Will 05/26/2014 12:00 AM HCPOA Advance Directives and Living Will 02/25/2014 12:00 AM ADVANCED DIRECTIVES Advance Directives and Living Will 02/25/2014 12:00 AM HCPOA Advance Directives and Living Will 01/21/2014 12:00 AM ADVANCED DIRECTIVES Advance Directives and Living Will 01/21/2014 12:00 AM HCPOA Advance Directives and Living Will 12/05/2013 12:00 AM ADVANCED DIRECTIVES Advance Directives and Living Will 12/05/2013 12:00 AM HCPOA Advance Directives and Living Will 04/11/2013 12:00 AM ADVANCED DIRECTIVES Advance Directives and Living Will 04/11/2013 12:00 AM HCPOA Advance Directives and Living Will 11/27/2012 12:00 AM ADVANCED DIRECTIVES Advance Directives and Living Will 11/27/2012 12:00 AM HCPOA Advance Directives and Living Will 07/24/2012 ADVANCED DIRECTIVES Advance Directives and Living Will 07/03/2012 12:00 AM ADVANCED DIRECTIVES Advance Directives and Living Will 07/03/2012 12:00 AM HCPOA Advance Directives and Living Will 07/28/2011 12:00 AM POWER OF NEWS WIRE PHOTO OPERATOR FO R HEALTH CARE Advance Directives and Living Will 07/28/2011 12:00 AM POWER OF NEWS WIRE PHOTO OPERATOR FO R HEALTH CARE Care Teams Electric Welder Helper Relationship Specialty Start Date End Date Dior Molina MD [address] [place] [address] PCP - General FAMILY PRACTICE 03/25/22 Otis Cuenca MD [place] [employer] Receptionist CARDIOVASCULAR DISEASE 06/15/17 Charlotte Grewal, [facility]- [address] [facility] [address] [place] [address] NURSE PRACTITIONER 06/15/17
--- OUTSIDE RECORDS SUMMARY | 2024-09-10 17:21 | XMS_ITS | Encounter Summary ---
Author Organization [facility] Address [address] [place] [address] Care Team Providers Care Lead Instructor/Flight Attendant Name Role Phone Karla Cyr DO Primary Care Provider [phone] Joellen Del Castillo MD, Otis Unavailable [phone] Charlotte Grewal [facility]- Unavailable [phone] Karla Cyr DO Unavailable Ashley Caceres MD Primary Care Provider Encounter Details Date Type Department Care Team (Late st Contact Info) Description 07/24/2012 Abstract [facility] Conversion , Generic Conversion, Social History Tobacco Use Types Packs/Day Years Used Date Smoking Tobacco: Never Assessed Comments Unknown Sex and Gender Information Value Date Recorded Sex Assigned at Not on file Legal Sex Female 2:19 PM CDT Gender Identity Not on file Sexual Orientation Not on file documented as of this encounter Plan of Treatment Not on file documented as of this encounter Visit Diagnoses Not on filedocumented in this encounter Care Teams Lead Instructor/Flight Attendant Relationship Specialty Start Date End Date Karla Cyr DO [address] [place] [address] PCP - General FAMILY PRACTICE 06/14/17 05/15/18 Karla Cyr DO [address] [place] [address] PCP - Med Group - [facility] Attributed Provider 04/30/19 06/25/21 Ashley Caceres MD [address] [place] [address] PCP - General FAMILY PRACTICE 03/25/22 Otis Cuenca MD [address] [place] [address] [place] [address] [employer] Fire Regulator CARDIOVASCULAR DISEASE 06/15/17 Charlotte Grewal, [facility]- [address] [facility] [address] [place] [id number] NURSE PRACTITIONER 06/15/17 documented as of this encounter
== END ==
LOC: ANHLAB 15:23
PROVIDERS: PCP Nurse Practitioner Family; Visit Provider Plastic Surgery
DX: C44.712 Basal cell carcinoma of skin of right lower limb, including hip (principal); L57.8 Other skin changes due to chronic exposure to nonionizing radiation
CPT/HCPCS: 88305